=== PATIENT | female | born 1990 | race Two or more races ===

== ENCOUNTER 2024-01-31 17:08 | Emergency (ER) | payer OTHER ==
[~2024-01-31] VITALS: Ht 165.1 cm; Wt 59.0 kg
[2024-01-31] MEDS ORDERED: PEPCID AC10 MG (17:24)
[2024-01-31] MEDS ORDERED: PRENATABS FA T1 EACH (17:24)
[2024-01-31 22:20] LABS: HEMATOCRIT 30.5 % (36.0-45.00); HEMOGLOBIN 10.8 g/dL (12.0-15.00); MEAN CELL VOLUME 85.9 fL (80.00-100.00); MEAN CORPUSCULAR HEMOGLOBIN 30.3 pg (27.00-32.0); MEAN CORPUSCULAR HGB CONC 35.2 g/dl (32.0-36.0); PLATELET COUNT 223 K/uL (150-450); RED BLOOD COUNT 3.55 M/uL (4.00-6.00); RED CELL DISTRIBUTION WIDTH 13.2 % (11.5-14.5)
[2024-01-31 22:51] LABS: INR 0.98; PARTIAL THROMBOPLASTIN TIME 25.3 SECONDS (22.0-34.0); PROTHROMBIN TIME 10.3 SECONDS (9.0-11.5)
[2024-01-31 23:07] LABS: CALCIUM 9.8 mg/dL (8.5-10.1); CREATININE SERUM 0.43 mg/dL (0.55-1.02); GFR 166.14; POTASSIUM 3.69 mEq/L (3.5-5.1)
[2024-01-31 23:33] LABS: PH,URINE 5.5 (5.0-8.0); URINE APPEARANCE Cloudy; URINE BILIRRUBIN Negative (NEGATIVE); URINE BLOOD Small; URINE COLOR Yellow; URINE GLUCOSE Negative (NEGATIVE); URINE LEUKOCYTE Large; URINE NITRATE Negative; URINE PROTEIN Trace (NEGATIVE)
[2024-01-31 23:37] LABS: URINE EPITHELIAL CELLS 155.8 uL (0.0-38.8); URINE RBC 9.9 uL (0.0-20.8); URINE WBC 413.7 uL (0.0-23.2)
[2024-02-01 00:01] LABS: URINE BACTERIA > 9821.5 uL (0.0-1933)
== END 2024-02-01 00:49 | disposition home or self-care (01) ==
LOC: ER 17:09
PROVIDERS: Emergency Medicine
DX: O20.9 Hemorrhage in early pregnancy, unspecified (principal); O23.41 Unspecified infection of urinary tract in pregnancy, first trimester; N39.0 Urinary tract infection, site not specified; O30.041 Twin pregnancy, dichorionic/diamniotic, first trimester; O43.891 Other placental disorders, first trimester; Z3A.12 12 weeks gestation of pregnancy